=== PATIENT | male | born 1975 | race Caucasian/White ===

== ENCOUNTER 2019-12-25 19:25 | Emergency (ER) | payer MEDICAID ==
[2019-12-25] MEDS ORDERED: Sodium Chloride 0.9% 10 ML Syringe FLUSH PRN (20:01)
[2019-12-25] MEDS ORDERED: Ondansetron 4 MG/2 ML SDV IVPUSH ONE (20:02)
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
[2019-12-25] MEDS ORDERED: Lactated Ringers 1,000 ML IV SCH (20:15)
[2019-12-25 21:20] VITALS: BP 146/82; PULSE 87
--- NOTE | 2019-12-28 08:52 | CR ---
CHEST: 2 view CLINICAL HISTORY:Fever and cough COMPARISON:None FINDINGS: The heart size, pulmonary vascularity and hilar structures are normal. No infiltrate effusion or pneumothorax is seen. IMPRESSION: No acute cardiopulmonary process.
== END 2019-12-25 21:56 | disposition home or self-care (01) ==
LOC: JP.ED 19:25
DX: K52.9 Noninfective gastroenteritis and colitis, unspecified (principal); J45.20 Mild intermittent asthma, uncomplicated; K21.9 Gastro-esophageal reflux disease without esophagitis; F17.210 Nicotine dependence, cigarettes, uncomplicated; Z88.0 Allergy status to penicillin; Z79.899 Other long term (current) drug therapy
CPT/HCPCS: 36415; 71046; 80053; 81001; 83605; 85025; 96361; 96374; 99284; 99285; J2405; J7120